=== PATIENT | female | born 1970 | race Caucasian/White ===

== ENCOUNTER → 2017-01-14 | Outpatient (CLI) | payer BC ==
[2005-10-16 07:00] VITALS: PULSE 86; TEMP 98
[~2017-01-14] MED LIST: PREDNISONE10 MG
== END ==
LOC: MC.RAD 07:56
DX: Z12.31 Encounter for screening mammogram for malignant neoplasm of breast (principal)

== ENCOUNTER 2017-02-15 08:04 | Day surgery (SDC) | payer BC ==
[~2017-02-15] VITALS: Ht 162.6 cm; Wt 72.4 kg
[2017-02-15] MEDS ORDERED: FLAGYL 250250 MG/TAB PO (08:44)
[2017-02-15 09:11] VITALS: BP 120/86; PULSE 83; TEMP 98.3
[2017-02-15] MEDS ORDERED: FLAGYL500 MG PO (10:22)
[2017-02-15 10:56] VITALS: BP 105/65; PULSE 56
== END 2017-02-15 10:55 | disposition home or self-care (01) ==
LOC: SDCO 08:04
DX: K91.850 Pouchitis (principal); K62.4 Stenosis of anus and rectum; K91.858 Other complications of intestinal pouch; K62.89 Other specified diseases of anus and rectum
CPT/HCPCS: OP; J2250; J3010; J7030

== ENCOUNTER → 2018-12-27 | Outpatient (CLI) | payer BC ==
[~2018-12-27] MED LIST changes: +FLAGYL 250250 MG/TAB PO; +FLAGYL500 MG PO
== END ==
LOC: COL.RAD 09:09
DX: K83.8 Other specified diseases of biliary tract (principal); K82.8 Other specified diseases of gallbladder; R74.8 Abnormal levels of other serum enzymes

== ENCOUNTER → 2020-01-14 | Outpatient (CLI) | payer BC | LOC: MC.RAD 06:54 | DX: Z12.31 Encounter for screening mammogram for malignant neoplasm of breast (principal) ==

== ENCOUNTER → 2021-02-17 | Outpatient (CLI) | payer BC | LOC: MC.RAD 07:23 | DX: Z12.31 Encounter for screening mammogram for malignant neoplasm of breast (principal) ==

== ENCOUNTER → 2022-05-05 | Outpatient (CLI) | payer BC ==
[2005-10-16 07:00] VITALS: TEMP 98
[~2022-05-05] MED LIST changes: +ZOFRAN ODT4 MG PO
== END ==
LOC: MC.RAD 07:00
DX: Z12.39 Encounter for other screening for malignant neoplasm of breast (principal)

== ENCOUNTER → 2023-05-31 | Outpatient (CLI) | payer BC ==
[2005-10-16 07:00] VITALS: TEMP 98
== END ==
LOC: MC.RAD 07:07
DX: Z12.31 Encounter for screening mammogram for malignant neoplasm of breast (principal)